=== PATIENT | male | born 2000 | race Caucasian/White ===

== ENCOUNTER 2018-02-21 01:34 | Inpatient (IN) | payer OTHER ==
[~2018-02-21] VITALS: Ht 190.5 cm; Wt 286.2 kg
[2018-02-21] VITALS (11 sets, daily range): BP systolic 97–125; BP diastolic 40–66
[2018-02-21] MEDS ORDERED: BACTRIM DS TAB1 EACH (02:04)
[2018-02-21] MEDS ORDERED: NORCO 5-325 TA1 EACH (02:06)
[2018-02-21] MEDS ORDERED: KEFLEX500 M1 (02:07)
[2018-02-21 02:24] LABS: HEMATOCRIT 34.8 % (42.0-52.0); HEMOGLOBIN 11.8 gm/dL (14.0-18.0); MCH 29.1 pg (26.0-34.0); MCHC 33.9 g/dL (28.0-37.0); MCV 85.8 fL (80.0-100.0); MPV 8.5 fl. (7.2-11.1); NUCLEATED RBCS 0 /100WBC; PLATELET COUNT* 357 thou/uL (150-400); RBC 4.05 mil/uL (4.50-6.00); RDW-CV 12.5 % (10.5-14.5); WBC 23.5 thou/uL (4.0-11.0)
[2018-02-21 02:35] LABS: CALCIUM 8.5 mg/dL (8.5-10.1); CREATININE 1.5 mg/dL (0.6-1.3); POTASSIUM 3.1 mmol/L (3.5-5.1)
[2018-02-21 02:38] LABS: BE -2.1 mmol/L (-2 to +3); PCO2 30.8 mmHg (35.0-45.0); pH 7.451 (7.340-7.450)
[2018-02-21 02:39] LABS: ALBUMIN 2.5 g/dL (3.4-5.0); MAGNESIUM 1.9 mg/dL (1.8-2.4); TOTAL BILIRUBIN 0.6 mg/dL (<0.1-1.0); TOTAL PROTEIN 7.4 g/dL (6.4-8.2)
[2018-02-21 03:34] LABS: APTT 30.6 Seconds (25.0-31.3); INR 1.1; PROTIME 11.1 Seconds (9.20-11.50)
[2018-02-21 03:37] LABS: PO2 46.7 mmHg (75.0-100.0)
[2018-02-21 05:10] LABS: ABSOLUTE LYMPHOCYTES 2.8 thou/uL (0.8-5.3); ABSOLUTE MONOCYTES 0.2 thou/uL (0.0-1.2); ABSOLUTE NEUTROPHILS 20.4 thou/uL (1.6-8.1); METAMYELOCYTES 1 %; PLATELET ESTIMATE ADEQUATE
[2018-02-21 05:11] LABS: POLYCHROMASIA 1+
[2018-02-21 05:13] LABS: TOXIC GRANULATION 1+
[2018-02-21 08:52] LABS: AMP/METHAMP Negative (Negative); BARBITURATES Negative (Negative); BENZODIAZEPINES Negative (Negative); COCAINE Negative (Negative); METHADONE Negative (Negative); OPIATES POSITIVE (Negative); PCP Negative (Negative); THC Negative (Negative)
[2018-02-21 12:53] LABS: HEMATOCRIT 28.6 % (42.0-52.0); MCH 29.5 pg (26.0-34.0); MCHC 34.2 g/dL (28.0-37.0); MCV 86.3 fL (80.0-100.0); NUCLEATED RBCS 0 /100WBC; PLATELET COUNT* 293 thou/uL (150-400); RBC 3.32 mil/uL (4.50-6.00); RDW-CV 12.6 % (10.5-14.5); WBC 15.8 thou/uL (4.0-11.0)
[2018-02-21 12:57] LABS: HEMOGLOBIN 9.8 gm/dL (14.0-18.0)
[2018-02-21 13:27] LABS: ABSOLUTE LYMPHOCYTES 2.1 thou/uL (0.8-5.3); ABSOLUTE MONOCYTES 1.1 thou/uL (0.0-1.2); ABSOLUTE NEUTROPHILS 12.6 thou/uL (1.6-8.1); ANISOCYTOSIS 1+; PLATELET ESTIMATE ADEQUATE; POIKILOCYTOSIS 1+
--- NOTE | 2018-02-21 14:32 | EKG ---
[place] [address] ELECTROCARDIOGRAM REPORT Name: REMA BEEBE Room: [address] ADM IN M.R.#: [id number] Admission: 02/21/18 Attend Phys: Gilberto Pagan MD Discharge: Date of : [birth year] Report #: [id number] THIS REPORT FOR: //name// [facility] ED Test Date: 2018-02-21 Test Time: 02:21:03 Pat Name: REMA BEEBE Department: Room: [facility] Gender: M International Relations Professor: leeann bunch : 2000 Requested By: Aletah Mills Order Number: [id number] MD: Richar Kraus Measurements Intervals [place] Rate: 114 P: 49 [place]: 138 QRS: 143 QRSD: 120 T: -3 QT: 336 QTc: 463 Interpretive Statements Sinus tachycardia Nonspecific intraventricular conduction delay Borderline T abnormalities, inferior leads Borderline ST elevation, anterolateral leads No previous ECG available for comparison Electronically Signed On 02-21-2018 14:32:28 PRINTING FILM STRIPPER by Richar Kraus [email or web address] <ELECTRONICALLY SIGNED> By: Richar Kraus MD, FAC 02/21/18 1432 0 0 Richar Kraus MD, [facility] /EPI
[2018-02-22] VITALS: BP 109/45
[2018-02-22 04:00] VITALS: BP 102/53
[2018-02-22 04:59] LABS: PREALBUMIN 9.4 mg/dL (18.0-35.7)
[2018-02-22 05:03] LABS: CALCIUM 8.6 mg/dL (8.5-10.1); CREATININE 0.9 mg/dL (0.6-1.3); POTASSIUM 4.3 mmol/L (3.5-5.1)
[2018-02-22 07:50] VITALS: BP 118/53
--- NOTE | 2018-02-22 11:51 | CON ---
[address] [address] CONSULTATION Name: REMA BEEBE Room: [address] IN M.R.#: [id number] Admission: 02/21/18 Attend Phys: Gilberto Pagan MD Discharge: Date of : [birth year] Report #: [id number] THIS REPORT FOR: //name// CC: Amando Pagan DATE OF SERVICE: 02/21/2018 ATTENDING PHYSICIAN: Dr. Pagan. REASON FOR EVALUATION: Right lower extremity necrotizing skin and soft tissue infection with early sepsis. HISTORY OF PRESENT ILLNESS: Chart reviewed, patient examined. This is a 17-year-old without significant medical history who apparently has received multiple lower extremity bites secondary to bedbugs and developed an inflammatory process involving lateral aspect of the right foot extending to the right leg. This is going on for the last several days; however, considerably worsened over the course of the last 3-4 days with increasing pain, made it difficult to ambulate, has had some systemic illness, was evaluated and was found to be hypoxemic, borderline hypotension. Lactic acid was elevated at 2.4, repeat was 1.1. White count was elevated at 23.5. He was empirically placed on antibiotics, vancomycin and Levaquin. Imaging showed no acute osseous abnormalities subcutaneous soft tissue swelling and thickening without clear evidence of gas or abscess. He is lucid at this point. Denies any pulmonary or gastrointestinal related complaints. ALLERGIES: PENICILLINS. MEDICATIONS: Include enoxaparin, vancomycin, levofloxacin, pantoprazole, p.r.n. analgesics and antiemetics. PAST MEDICAL HISTORY: Otherwise unremarkable. SOCIAL HISTORY: Nonsmoker, no ethanol. FAMILY HISTORY: Noncontributory. REVIEW OF SYSTEMS: As above. PHYSICAL EXAMINATION: GENERAL: He is in ftrl-ku-[id number] distress. He is pleasant, alert, cooperative, appears to be well nourished. VITAL SIGNS: Temperature 99.0 with a T-max 99.6, pulse 102, respirations 14, blood pressure 101/40. SKIN: Warm, [place] [address] CONSULTATION Name: REMA BEEBE Room: [address]#: [id number] Admission: 02/21/18 Attend Phys: Gilberto Pagan MD Discharge: Date of : [birth year] Report #: [id number] HEENT: Unremarkable. He has nasal cannula oxygen in place. NECK: Supple. LUNGS: Diminished breath sounds. HEART: Regular. No appreciable murmur. ABDOMEN: Soft, nontender. EXTREMITIES: Right lower extremity has skin and soft tissue necrosis primarily associated with the foot, lateral malleolus has multiple areas of under denuded superficial ulcers including primarily the malleolus, is quite tender, especially with test with dorsal flexion. I do not appreciate that he has got a septic arthritis at this point. IMAGING DATA: CT as noted above of lower extremities and CT of the chest showed some central lobar branching pattern throughout the lungs suggestive of pneumonia. LABORATORY DATA: CBC: White count of 23.5, H and H 9.8 and 34.8, platelets of 357 33% bands. PT of 11.1, INR of 1.1. Fibrinogen of 728. ABGs: pH 7.451, pCO2 of 30.8, pO2 of 46.7. Electrolytes: Sodium 131, potassium 3.1, chloride 97, bicarbonate is 24, BUN and creatinine 24 and 1.5, glucose of 98, AST of 82, ALT of 60, total bilirubin of 0.6. Estimated GFR of 60. Albumin 2.5, total protein 7.4. ASSESSMENT: Right lower extremity necrotizing skin and soft tissue infection. Continue empiric broad spectrum therapy. We expect a Staph or strep etiology. Does have a PENICILLIN allergy. We will adjust therapy to cover Gram negatives, as well as anaerobes. At this point, surgery evaluation is pending. We would favor operative debridement of the site. <ELECTRONICALLY SIGNED> By: Dada Juárez MD 02/22/18 1151 0916 [id number] Juárez MD /nt
[2018-02-22 16:39] VITALS: BP 102/42
[2018-02-22 21:00] VITALS: BP 121/66
[2018-02-23 02:12] LABS: GLYCOHEMOGLOBIN (HGB A1C) 5.1 % (4.8-5.6)
[2018-02-23 03:59] LABS: HEMATOCRIT 29.2 % (42.0-52.0); HEMOGLOBIN 9.8 gm/dL (14.0-18.0); MCH 29.5 pg (26.0-34.0); MCHC 33.5 g/dL (28.0-37.0); MCV 88.1 fL (80.0-100.0); MPV 8.3 fl. (7.2-11.1); RBC 3.32 mil/uL (4.50-6.00); RDW-CV 12.5 % (10.5-14.5); WBC 9.2 thou/uL (4.0-11.0)
[2018-02-23 04:00] VITALS: BP 116/57
[2018-02-23 04:08] LABS: CALCIUM 8.1 mg/dL (8.5-10.1); CREATININE 0.9 mg/dL (0.6-1.3); MAGNESIUM 1.8 mg/dL (1.8-2.4); POTASSIUM 3.9 mmol/L (3.5-5.1)
[2018-02-23 08:30] VITALS: BP 120/59
[2018-02-23 15:50] VITALS: BP 116/66
--- NOTE | 2018-03-02 09:32 | OP ---
[address] [address] OPERATIVE REPORT Name: REMA BEEBE Room: [address] IN M.R.#: [id number] Admission: 02/21/18 Attend Phys: Gilberto Pagan MD Discharge: 02/23/18 Date of : [birth year] Report #: [id number] THIS REPORT FOR: //name// CC: Amando Pagan DATE OF SERVICE: 02/21/2018 PREOPERATIVE DIAGNOSIS: Abscess, left lower leg, distal fibular region. POSTOPERATIVE DIAGNOSIS: Abscess, left lower leg, distal fibular region. OPERATION PERFORMED: 1. Irrigation and debridement to bone, right distal fibula, 14 x 6 cm, 84 square cm. 2. Application of wound VAC, 6 x 7 cm, 42 square cm. SURGEON: Richar Cantrell DO. SINGLE CORNER CUTTER: Harman Stallings DO. SECOND BELT DRESSER: NIYA Mccormick. ANESTHESIA: General. GROSS PATHOLOGY: This patient has an abscess to the right lower leg and noted to go down to the fibular region of the right distal fibula. The area of keesha necrosis was approximately 6 x 7 cm. The soft tissue swelling and edema did extend up the distal fibula with this area being approximately 84 square cm as described above. There was liquefaction of the soft tissue. There was purulent material in the distal fibular region. C and S was taken of this. Dr. Iqbal, as well as myself, has discussed the diagnosis with the family and the patient, they are aware that further surgery may be indicated and the leg is markedly edematous, but no other abscesses were noted. Erythema is noted in the right lower leg also. He has no tenderness to palpation of the proximal tibia. DESCRIPTION OF PROCEDURE: The patient was brought to the operating room where general anesthetic was administered. He is on preoperative antibiotics. A Betadine scrub and prep were done to the right leg. The patient was draped in a sterile manner. An incision then made on the right distal fibula approximately 5 cm in length. This was carried down through the skin and subcuticular material by sharp dissection, the necrotic area over the distal fibula as measured above of the wound VAC size was debrided to the deep tissue. The area was curetted. Debridement is done excisional removing the skin, subcutaneous, muscle tissue as well as mechanical with the pulsatile lavage. After the area had been debrided, it was further debrided with the [place] [address] OPERATIVE REPORT Name: REMA BEEBE Room: [address]#: [id number] Admission: 02/21/18 Attend Phys: Gilberto Pagan MD Discharge: 02/23/18 Date of : [birth year] Report #: [id number] leg is the squeezed and no further purulent material was noted in the tissue. Again, the pulsatile lavage was utilized. Upon completion of this, utilizing a Mepitel type material was placed to the wound. The sponge from the wound VAC was placed over this and measured approximately 42 square cm. The wound VAC was then completed, hookup and noted to be working well. The leg is sterile wrapped. The patient was transferred to recovery room in good condition. Blood loss approximately 30 mL. <ELECTRONICALLY SIGNED> By: Richar Cantrell DO 03/02/18 0932 1617 [id number] Cantrell DO /nt
== END 2018-02-23 23:22 | disposition short-term general hospital (02) | DRG 853 ==
LOC: M.ERS 01:34 → M.TBA-ER 03:10 → M.ORTHSURG 03:10 → M.ICU 04:08 → M.ORTHSURG 15:52
PROVIDERS: Internal Medicine; Personal Emergency Response Attendant; ADMIT Family Medicine
PROC: 0QBJ0ZZ Excision of Right Fibula, Open Approach (ICD-10-PCS; principal; 2018-02-21)
DX: A41.9 Sepsis, unspecified organism (principal); J18.9 Pneumonia, unspecified organism; L03.115 Cellulitis of right lower limb; L02.415 Cutaneous abscess of right lower limb; Z68.45 Body mass index [BMI] 70 or greater, adult; E44.0 Moderate protein-calorie malnutrition; E66.9 Obesity, unspecified; R73.9 Hyperglycemia, unspecified; B95.1 Streptococcus, group B, as the cause of diseases classified elsewhere; Z79.899 Other long term (current) drug therapy; Z88.0 Allergy status to penicillin

== ENCOUNTER 2020-08-21 22:56 | Emergency (ER) | payer OTHER ==
[~2020-08-21] VITALS: Ht 188 cm; Wt 122.5 kg
[~2020-08-21 22:56] MED LIST: BACTRIM DS TAB1 EACH; KEFLEX500 M1; NORCO 5-325 TA1 EACH
[2020-08-21 23:23] LABS: ABSOLUTE EOSINOPHILS 0.1 thou/uL (0.0-0.7); ABSOLUTE LYMPHOCYTES 2.3 thou/uL (0.8-5.3); ABSOLUTE MONOCYTES 0.9 thou/uL (0.0-1.2); BASOPHILS 0.4 %; EOSINOPHILS 1.1 %; HEMATOCRIT 42.1 % (42.0-52.0); HEMOGLOBIN 14.2 gm/dL (14.0-18.0); LYMPHOCYTES 27.9 %; MCH 29.9 pg (26.0-34.0); MCHC 33.6 g/dL (28.0-37.0); MCV 88.9 fL (80.0-100.0); MONOCYTES 11.3 %; MPV 8.6 fl. (7.2-11.1); NUCLEATED RBCS 0 /100WBC; PLATELET COUNT* 236 thou/uL (150-400); POLYS 59.3 %; RBC 4.74 mil/uL (4.50-6.00); RDW-CV 13.1 % (10.5-14.5); WBC 8.4 thou/uL (4.0-11.0)
[2020-08-21 23:30] LABS: CALCIUM 9.3 mg/dL (8.5-10.1); POTASSIUM 4.1 mmol/L (3.5-5.1)
[2020-08-21 23:35] LABS: ALBUMIN 4.3 g/dL (3.4-5.0); TOTAL BILIRUBIN 0.3 mg/dL (<0.1-1.0)
[2020-08-21 23:43] LABS: ALCOHOL < 10 mg/dL (<10); SALICYLATE < 2.8 mg/dL (2.8-20.0)
[2020-08-21 23:51] LABS: ACETAMINOPHEN < 2 ug/mL (10-30)
[2020-08-22 00:12] LABS: URINE BILIRUBIN NEGATIVE (Negative); URINE BLOOD NEGATIVE (Negative); URINE CLARITY CLEAR; URINE COLOR YELLOW; URINE GLUCOSE-RANDOM NEGATIVE (Negative); URINE KETONES NEGATIVE (Negative); URINE LEUKOCYTES-REFLEX NEGATIVE (Negative); URINE NITRITE-REFLEX NEGATIVE (Negative); URINE PROTEIN NEGATIVE (Negative); URINE SPECIFIC GRAVITY >= 1.030 (1.005-1.030); URINE UROBILINOGEN 0.2 E.U./dl (0.2-1.0)
[2020-08-22 00:21] LABS: AMP/METHAMP Negative (Negative); BARBITURATES Negative (Negative); BENZODIAZEPINES Negative (Negative); COCAINE Negative (Negative); METHADONE Negative (Negative); OPIATES Negative (Negative); PCP Negative (Negative); THC POSITIVE (Negative)
[2020-08-23 00:30] VITALS: BP 116/56
== END 2020-08-23 00:30 | disposition home or self-care (01) ==
LOC: M.ERS 22:56
PROVIDERS: Emergency Medicine
DX: F22 Delusional disorders (principal); R45.4 Irritability and anger; Z20.822 Contact with and (suspected) exposure to COVID-19; Z88.0 Allergy status to penicillin; Z79.899 Other long term (current) drug therapy

== ENCOUNTER 2020-08-23 02:35 | Emergency (ER) | payer OTHER ==
[~2020-08-23] VITALS: Ht 188 cm; Wt 122.5 kg
[2020-08-25 12:39] VITALS: BP 98/54
== END 2020-08-25 12:40 | disposition home or self-care (01) ==
LOC: M.ERS 02:35
DX: R45.4 Irritability and anger (principal); Z88.0 Allergy status to penicillin; F41.9 Anxiety disorder, unspecified; F22 Delusional disorders; R45.1 Restlessness and agitation

== ENCOUNTER 2020-10-28 15:36 | Emergency (ER) | payer OTHER ==
[~2020-10-28] VITALS: Ht 188 cm; Wt 118.8 kg
[2020-10-28 16:29] LABS: ABSOLUTE BASOPHILS 0.1 thou/uL (0.0-0.2); ABSOLUTE LYMPHOCYTES 1.7 thou/uL (0.8-5.3); ABSOLUTE MONOCYTES 0.9 thou/uL (0.0-1.2); ABSOLUTE NEUTROPHILS 8.7 thou/uL (1.6-8.1); BASOPHILS 0.5 %; EOSINOPHILS 0.2 %; LYMPHOCYTES 15.1 %; MCH 30.6 pg (26.0-34.0); MCHC 35.8 g/dL (28.0-37.0); MCV 85.4 fL (80.0-100.0); MONOCYTES 8.1 %; MPV 7.6 fl. (7.2-11.1); NUCLEATED RBCS 0 /100WBC; PLATELET COUNT* 237 thou/uL (150-400); POLYS 76.1 %; RBC 4.57 mil/uL (4.50-6.00); RDW-CV 12.6 % (10.5-14.5); WBC 11.4 thou/uL (4.0-11.0)
[2020-10-28 16:37] LABS: CREATININE 1.2 mg/dL (0.6-1.3); POTASSIUM 4.2 mmol/L (3.5-5.1)
[2020-10-28 16:41] LABS: TOTAL BILIRUBIN 0.4 mg/dL (<0.1-1.0); TOTAL PROTEIN 7.8 g/dL (6.4-8.2)
[2020-10-28 16:51] LABS: SALICYLATE < 2.8 mg/dL (2.8-20.0)
[2020-10-28 16:54] LABS: ACETAMINOPHEN < 2 ug/mL (10-30); ALCOHOL < 10 mg/dL (<10)
[2020-10-28 17:24] LABS: URINE BILIRUBIN NEGATIVE (Negative); URINE BLOOD NEGATIVE (Negative); URINE CLARITY CLEAR; URINE COLOR YELLOW; URINE GLUCOSE-RANDOM NEGATIVE (Negative); URINE KETONES NEGATIVE (Negative); URINE LEUKOCYTES-REFLEX NEGATIVE (Negative); URINE NITRITE-REFLEX NEGATIVE (Negative); URINE PROTEIN NEGATIVE (Negative); URINE SPECIFIC GRAVITY >= 1.030 (1.005-1.030); URINE UROBILINOGEN 0.2 E.U./dl (0.2-1.0)
[2020-10-28 17:32] LABS: AMP/METHAMP Negative (Negative); BARBITURATES Negative (Negative); BENZODIAZEPINES Negative (Negative); COCAINE Negative (Negative); METHADONE Negative (Negative); OPIATES Negative (Negative); PCP Negative (Negative); THC POSITIVE (Negative)
[2020-10-30 08:05] VITALS: BP 108/40
== END 2020-10-30 08:47 ==
LOC: M.ERS 15:36
PROVIDERS: Emergency Medicine Emergency Medical Services
DX: R45.851 Suicidal ideations (principal); Z20.822 Contact with and (suspected) exposure to COVID-19

== ENCOUNTER 2021-05-08 20:46 | Emergency (ER) | payer OTHER ==
[~2021-05-08] VITALS: Ht 188 cm; Wt 127.0 kg
[2021-05-08 21:50] LABS: HEMATOCRIT 41.5 % (42.0-52.0); HEMOGLOBIN 14.2 gm/dL (14.0-18.0); MCH 29.9 pg (26.0-34.0); MCHC 34.1 g/dL (28.0-37.0); MCV 87.6 fL (80.0-100.0); MPV 8.7 fl. (7.2-11.1); RBC 4.74 mil/uL (4.50-6.00); RDW-CV 13.1 % (10.5-14.5); WBC 11.6 thou/uL (4.0-11.0)
[2021-05-08 21:56] LABS: CALCIUM 9.5 mg/dL (8.5-10.1); CREATININE 1.3 mg/dL (0.6-1.3); POTASSIUM 3.2 mmol/L (3.5-5.1)
[2021-05-08 21:56] LABS: URINE BLOOD NEGATIVE (Negative); URINE CLARITY CLEAR; URINE COLOR YELLOW; URINE GLUCOSE-RANDOM NEGATIVE (Negative); URINE KETONES TRACE (Negative); URINE LEUKOCYTES NEGATIVE (Negative); URINE NITRITE NEGATIVE (Negative); URINE PROTEIN 1+ (Negative); URINE SPECIFIC GRAVITY 1.025 (1.005-1.030); URINE UROBILINOGEN 0.2 E.U./dl (0.2-1.0)
[2021-05-08 22:00] LABS: ALBUMIN 4.8 g/dL (3.4-5.0); TOTAL BILIRUBIN 0.5 mg/dL (<0.1-1.0)
[2021-05-08 22:01] LABS: ICTOTEST (BILI CONFIRMATORY) Negative (Negative); URINE BILIRUBIN 1+ (Negative)
[2021-05-08 22:03] LABS: AMP/METHAMP Negative (Negative); BARBITURATES Negative (Negative); BENZODIAZEPINES Negative (Negative); COCAINE Negative (Negative); METHADONE Negative (Negative); OPIATES Negative (Negative); PCP Negative (Negative); THC POSITIVE (Negative)
[2021-05-08 22:20] LABS: SALICYLATE 2.9 mg/dL (2.8-20.0)
[2021-05-08 22:23] LABS: ACETAMINOPHEN < 2 ug/mL (10-30); ALCOHOL < 10 mg/dL (<10)
[2021-05-08 23:44] VITALS: BP 138/78
== END 2021-05-08 23:44 | disposition home or self-care (01) ==
LOC: M.ERS 20:46
PROVIDERS: Personal Emergency Response Attendant
DX: Z00.8 Encounter for other general examination (principal); R45.1 Restlessness and agitation; Z88.0 Allergy status to penicillin

== ENCOUNTER 2021-05-19 13:52 | Inpatient (IN) | payer OTHER ==
[~2021-05-19] VITALS: Ht 188 cm; Wt 127.0 kg
[2021-05-19 14:01] VITALS: BP 134/85
[2021-05-19 14:11] LABS: ABSOLUTE LYMPHOCYTES 1.3 thou/uL (0.8-5.3); ABSOLUTE MONOCYTES 0.9 thou/uL (0.0-1.2); ABSOLUTE NEUTROPHILS 8.6 thou/uL (1.6-8.1); BASOPHILS 0.4 %; EOSINOPHILS 0.4 %; HEMOGLOBIN 13.5 gm/dL (14.0-18.0); LYMPHOCYTES 11.8 %; MCH 30.4 pg (26.0-34.0); MCHC 34.6 g/dL (28.0-37.0); MCV 87.9 fL (80.0-100.0); MONOCYTES 8.3 %; MPV 9.5 fl. (7.2-11.1); NUCLEATED RBCS 0 /100WBC; PLATELET COUNT* 178 thou/uL (150-400); POLYS 79.1 %; RBC 4.44 mil/uL (4.50-6.00); WBC 10.8 thou/uL (4.0-11.0)
--- NOTE | 2021-05-19 14:13 | EKG ---
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: DUDLEY : 2000 Requested By: Rudi Varela Order Number: [id number] MD: Carlos Richardson Measurements Intervals [place] Rate: 96 P: 39 [place]: 150 QRS: 90 QRSD: 114 T: -1 QT: 333 QTc: 421 Interpretive Statements Sinus rhythm Inferior infarct, old Abnormal lateral Q waves Compared to ECG 02/21/2018 02:21:03 Sinus tachycardia no longer present Electronically Signed On 05-19-2021 14:12:54 CONTAINERS SALES REPRESENTATIVE by Carlos Richardson [email or web address] <ELECTRONICALLY SIGNED> By: Carlos Richardson MD, [facility] 05/19/21 1412 1357 135 Carlos Richardson MD, [facility] /EPI
[2021-05-19 14:19] LABS: CALCIUM 8.2 mg/dL (8.5-10.1); CREATININE 0.9 mg/dL (0.6-1.3); POTASSIUM 3.1 mmol/L (3.5-5.1)
[2021-05-19 14:23] LABS: ALBUMIN 3.8 g/dL (3.4-5.0); TOTAL BILIRUBIN 0.2 mg/dL (<0.1-1.0); TOTAL PROTEIN 6.8 g/dL (6.4-8.2)
[2021-05-19 14:54] LABS: URINE BILIRUBIN NEGATIVE (Negative); URINE BLOOD NEGATIVE (Negative); URINE CLARITY CLEAR; URINE COLOR YELLOW; URINE GLUCOSE-RANDOM NEGATIVE (Negative); URINE KETONES NEGATIVE (Negative); URINE LEUKOCYTES-REFLEX NEGATIVE (Negative); URINE NITRITE-REFLEX NEGATIVE (Negative); URINE PROTEIN NEGATIVE (Negative); URINE SPECIFIC GRAVITY 1.015 (1.005-1.030); URINE UROBILINOGEN 0.2 E.U./dl (0.2-1.0)
[2021-05-19 15:02] LABS: AMP/METHAMP Negative (Negative); BARBITURATES Negative (Negative); BENZODIAZEPINES Negative (Negative); COCAINE Negative (Negative); METHADONE Negative (Negative); OPIATES Negative (Negative); PCP Negative (Negative); THC POSITIVE (Negative)
[2021-05-19 16:56] VITALS: BP 130/78
[2021-05-19] MEDS ORDERED: OLANZAPINE ODT5 MG PO (17:52)
[2021-05-19] MEDS ORDERED: DESYREL150 MG PO (17:52)
[2021-05-19] MEDS ORDERED: BUSPIRONE HCL10 MG PO (17:53)
[2021-05-19] MEDS ORDERED: HYDROXYZINE HCL25 M2 PO (17:54)
[2021-05-19] MEDS ORDERED: PROZAC 10 MG CA10 MG PO (17:54)
--- NOTE | 2021-05-19 21:59 | NUR ---
PT TAKE IV OUT AND YELLING AT THIS RN "I DONT WANT AN IV OR ANY MEDICATIONS" THIS RN ASKED IF I COULD PLACE AN IV IN A DIFFERENT AREA, PT REFUSED. THIS RN ASKED IF PT WAS REFUSING CARE AND PT RESPONDED "I DONT WANT ANYONE TO TOUCH ME OR GIVE ME MEDICATIONS" THIS RN PAGED DR RIVERA. DR RIVERA CALLED AND SAID PT IS FREE TO LEAVE AMA, IV ACCESS NOT NECCESSARY AND VERBAL ORDERED CLONAZEPAM 1MG. PT ASKED TO TALK TO FAMILY, PT GIVEN PHONE TO TALK TO FAMILY. PT AGREED TO TAKE CLONAZEPAM. MED GIVEN.
--- NOTE | 2021-05-19 22:53 | NUR ---
PTS FATHER CAME UP TO GET PATIENT. PT LEFT AMA. PT STATES UNDERSTANDING OF RISKS. SIGNED AMA PAPERWORK. NO IV D/T PT REMOVING IT EARLIER.
== END 2021-05-19 22:52 | disposition left against medical advice (07) | DRG 312 ==
LOC: M.ERS 13:52 → M.TBA-ER 15:42
PROVIDERS: Emergency Medicine Emergency Medical Services; ADMIT Internal Medicine; ATTEND Internal Medicine
DX: R55 Syncope and collapse (principal); E87.6 Hypokalemia; F12.90 Cannabis use, unspecified, uncomplicated; Z20.822 Contact with and (suspected) exposure to COVID-19; Z53.29 Procedure and treatment not carried out because of patient's decision for other reasons; Z88.0 Allergy status to penicillin; Z71.51 Drug abuse counseling and surveillance of drug abuser

== ENCOUNTER 2021-05-21 10:03 | Emergency (ER) | payer OTHER ==
[~2021-05-21] VITALS: Ht 188 cm; Wt 115.2 kg
--- NOTE | ~2021-05-21 | EKG ---
[place] [address] ELECTROCARDIOGRAM REPORT Name: REMA BEEBE Room: [facility]#: [id number] Admission: 05/21/21 Attend Phys: Discharge: 05/21/21 Date of : [birth year] Date of Service: 05/21/21 1025 Report #: [id number] THIS REPORT FOR: //name// [facility] ED Test Date: 2021-05-21 Test Time: 10:25:33 Pat Name: REMA BEEBE Department: Room: Gender: Gospel Worker: SHERYL : 2000 Requested By: Leydi Carter Order Number: [id number] Reading MD: Measurements Intervals [place] Rate: 78 P: 31 [place]: 134 QRS: 71 QRSD: 119 T: 24 QT: 355 QTc: 405 Interpretive Statements Sinus rhythm Nonspecific intraventricular conduction delay Abnormal lateral Q waves Compared to ECG 05/19/2021 13:57:24 Intraventricular conduction delay now present Myocardial infarct finding no longer present [email or web address] By: 1025 1025 [facility], /EPI
[~2021-05-21 10:03] MED LIST changes: +BUSPIRONE HCL10 MG PO; +DESYREL150 MG PO; +HYDROXYZINE HCL25 M2 PO; +OLANZAPINE ODT5 MG PO; +PROZAC 10 MG CA10 MG PO
[2021-05-21 12:32] VITALS: BP 132/67
== END 2021-05-21 12:33 | disposition left against medical advice (07) ==
LOC: M.ERS 10:03
DX: R07.89 Other chest pain (principal); Z88.0 Allergy status to penicillin; Z53.21 Procedure and treatment not carried out due to patient leaving prior to being seen by health care provider

== ENCOUNTER 2021-05-26 22:40 | Emergency (ER) | payer OTHER ==
[~2021-05-26] VITALS: Ht 188 cm; Wt 127.0 kg
[2021-05-26] MEDS ORDERED: BUSPIRONE HCL10 MG PO (23:09)
[2021-05-26 23:11] LABS: MPV 8.6 fl. (7.2-11.1); RDW-CV 13.3 % (10.5-14.5)
[2021-05-26 23:13] LABS: ABSOLUTE BASOPHILS 0.1 thou/uL (0.0-0.2); ABSOLUTE EOSINOPHILS 0.2 thou/uL (0.0-0.7); ABSOLUTE LYMPHOCYTES 2.9 thou/uL (0.8-5.3); ABSOLUTE MONOCYTES 1.2 thou/uL (0.0-1.2); ABSOLUTE NEUTROPHILS 6.4 thou/uL (1.6-8.1); BASOPHILS 0.7 %; EOSINOPHILS 1.5 %; HEMOGLOBIN 13.8 gm/dL (14.0-18.0); LYMPHOCYTES 27.2 %; MCH 30.1 pg (26.0-34.0); MCHC 34.4 g/dL (28.0-37.0); MCV 87.5 fL (80.0-100.0); MONOCYTES 11.3 %; NUCLEATED RBCS 0 /100WBC; PLATELET COUNT* 231 thou/uL (150-400); POLYS 59.3 %; RBC 4.57 mil/uL (4.50-6.00); WBC 10.8 thou/uL (4.0-11.0)
[2021-05-26 23:47] LABS: URINE BILIRUBIN NEGATIVE (Negative); URINE BLOOD NEGATIVE (Negative); URINE CLARITY CLEAR; URINE COLOR YELLOW; URINE GLUCOSE-RANDOM NEGATIVE (Negative); URINE KETONES NEGATIVE (Negative); URINE LEUKOCYTES-REFLEX NEGATIVE (Negative); URINE NITRITE-REFLEX NEGATIVE (Negative); URINE PROTEIN NEGATIVE (Negative); URINE SPECIFIC GRAVITY 1.025 (1.005-1.030); URINE UROBILINOGEN 0.2 E.U./dl (0.2-1.0)
[2021-05-26 23:54] LABS: CREATININE 1.2 mg/dL (0.6-1.3); POTASSIUM 3.4 mmol/L (3.5-5.1)
[2021-05-26 23:55] LABS: ACETAMINOPHEN < 2 ug/mL (10-30); SALICYLATE < 2.8 mg/dL (2.8-20.0)
[2021-05-26 23:56] LABS: ALCOHOL < 10 mg/dL (<10)
[2021-05-26 23:59] LABS: AMP/METHAMP Negative (Negative); BARBITURATES Negative (Negative); BENZODIAZEPINES Negative (Negative); COCAINE Negative (Negative); METHADONE Negative (Negative); OPIATES Negative (Negative); PCP Negative (Negative); THC POSITIVE (Negative)
[2021-05-26 23:59] LABS: TOTAL BILIRUBIN 0.2 mg/dL (<0.1-1.0); TOTAL PROTEIN 7.3 g/dL (6.4-8.2)
[2021-05-27 10:13] VITALS: BP 114/78
== END 2021-05-27 10:18 | disposition home or self-care (01) ==
LOC: M.ERS 22:40
PROVIDERS: Emergency Medicine
DX: F22 Delusional disorders (principal); Z20.822 Contact with and (suspected) exposure to COVID-19; R45.6 Violent behavior; F20.9 Schizophrenia, unspecified; Z79.899 Other long term (current) drug therapy; Z88.0 Allergy status to penicillin